=== PATIENT | male | born 1975 | race Caucasian/White ===

== ENCOUNTER 2023-04-01 10:42 | Outpatient (CLI) | payer OTHER | END 2023-04-01 10:43 | disposition home or self-care (01) | LOC: BICCT 10:42 | PROVIDERS: ATTEND Internal Medicine | DX: R10.31 Right lower quadrant pain (principal); K76.0 Fatty (change of) liver, not elsewhere classified; K76.9 Liver disease, unspecified | CPT/HCPCS: 74177 ==